=== PATIENT | female | born 1965 | race Caucasian/White ===

== ENCOUNTER → 2017-08-23 | Outpatient (CLI) | payer BC ==
[2017-08-23 10:19] LABS: Basophils # (A) 0.1 k/uL (0-0.2); Basophils % (A) 1 %; Eosinophils # (A) 0.5 k/uL (0-0.7); Eosinophils % (A) 7 %; HCT 46.9 % (34.0-46.0); HGB 15.4 gm/dL (11.4-16.0); Lymphocytes # (A) 2.2 k/uL (1.0-4.8); Lymphocytes % (A) 33 %; MCH 30.8 pg (25.0-35.0); MCHC 32.8 g/dL (31.0-37.0); MCV 93.9 fL (80.0-100.0); Mean Platelet Volume 7.2; Monocytes # (A) 0.4 k/uL (0-1.0); Monocytes % (A) 6 %; Neutrophils # (A) 3.4 k/uL (1.3-7.7); Neutrophils % (A) 51 %; Platelet Count 273 k/uL (150-450); RDW 12.6 % (11.5-15.5); WBC 6.6 k/uL (3.8-10.6)
[2017-08-23 10:20] LABS: ALT 51 U/L (9-52); AST 38 U/L (14-36); Albumin 4.5 g/dL (3.5-5.0); Alkaline Phosphatase 86 U/L (38-126); Anion Gap 10 mmol/L; Blood Urea Nitrogen 20 mg/dL (7-17); Calcium 9.5 mg/dL (8.4-10.2); Carbon Dioxide 30 mmol/L (22-30); Chloride 103 mmol/L (98-107); Cholesterol 192 mg/dL (<200); Glucose 108 mg/dL (74-99); HDL Cholesterol 58 mg/dL (40-60); LDL Cholesterol,Calculated 107 mg/dL (0-99); Potassium 4.4 mmol/L (3.5-5.1); Sodium 143 mmol/L (137-145); Total Bilirubin 0.9 mg/dL (0.2-1.3); Total Protein 7.2 g/dL (6.3-8.2); Triglycerides 135 mg/dL (<150)
== END | disposition home or self-care (01) ==
LOC: LABWHC1 09:46
PROVIDERS: ATTEND Family Medicine
DX: Z00.00 Encounter for general adult medical examination without abnormal findings (principal); R53.83 Other fatigue; D64.9 Anemia, unspecified; Z12.11 Encounter for screening for malignant neoplasm of colon
CPT/HCPCS: 36415; 80053; 80061; 82272; 82607; 84443; 85025

== ENCOUNTER 2017-10-02 11:47 | Observation (INO) | payer BC ==
[2017-10-02] MEDS ORDERED: SODIUM CHLORIDE 0.9% 500 ML IV STA (12:34)
--- NOTE | 2017-10-02 12:51 | XR ---
EXAMINATION TYPE: XR chest 2V DATE OF EXAM: 10/02/2017 COMPARISON: NONE TECHNIQUE: PA and lateral views submitted. HISTORY: Chest pain and shortness of breath FINDINGS: The lungs are clear and there is no pneumothorax, pleural effusion, or focal pneumonia. No overt fa ilure. Hypertrophic and degenerative change of the spine. IMPRESSION: 1. No acute process.
[2017-10-02 12:59] LABS: Basophils # (A) 0.1 k/uL (0-0.2); Basophils % (A) 1 %; Eosinophils # (A) 0.3 k/uL (0-0.7); Eosinophils % (A) 5 %; HCT 41.9 % (34.0-46.0); HGB 13.9 gm/dL (11.4-16.0); Lymphocytes # (A) 2.3 k/uL (1.0-4.8); Lymphocytes % (A) 34 %; MCH 30.5 pg (25.0-35.0); MCHC 33.1 g/dL (31.0-37.0); Mean Platelet Volume 7.4; Monocytes # (A) 0.4 k/uL (0-1.0); Monocytes % (A) 6 %; Neutrophils # (A) 3.5 k/uL (1.3-7.7); Neutrophils % (A) 52 %; Platelet Count 258 k/uL (150-450); RBC 4.55 m/uL (3.80-5.40); RDW 12.3 % (11.5-15.5); WBC 6.7 k/uL (3.8-10.6)
[2017-10-02 13:14] LABS: Partial Thromboplastin Time 24.9 sec (22.0-30.0)
[2017-10-02 13:19] LABS: ALT 55 U/L (9-52); AST 45 U/L (14-36); Albumin 4.5 g/dL (3.5-5.0); Alkaline Phosphatase 78 U/L (38-126); Anion Gap 8 mmol/L; Blood Urea Nitrogen 22 mg/dL (7-17); Calcium 9.4 mg/dL (8.4-10.2); Carbon Dioxide 27 mmol/L (22-30); Chloride 104 mmol/L (98-107); Glucose 88 mg/dL (74-99); Magnesium 2.1 mg/dL (1.6-2.3); Sodium 139 mmol/L (137-145); Total Bilirubin 0.8 mg/dL (0.2-1.3); Total Protein 7.3 g/dL (6.3-8.2)
[2017-10-02 13:32] LABS: Potassium 4.4 mmol/L (3.5-5.1)
[2017-10-02 13:33] LABS: Creatine Kinase 119 U/L (30-135)
[2017-10-02 13:46] LABS: Creatine Kinase MB 2.2 ng/mL (0.0-2.4); Troponin I <0.012 ng/mL (0.000-0.034)
[2017-10-02] MEDS ORDERED: NALOXONE 0.4 MG/ML 1 ML VIAL IV PRN (14:23)
[2017-10-02] MEDS ORDERED: ASPIRIN 81 MG PO STA (14:27)
--- NOTE | 2017-10-02 14:28 | ED ---
General Adult HPI - General Chief complaint: Chest Pain Stated complaint: Chest Pain Source: patient Mode of arrival: ambulatory Limitations: no limitations - History of Present Illness Initial comments: Dictation was produced using [employer] dictation software. please excuse any grammatical, word or spelling errors. Chief Complaint: 51-year-old female with a 60 past medical history presents with substernal chest pain. History of Present Illness: Patient is a 51-year-old feel presents with substernal chest pain. She states her symptoms started yesterday. She states that it happened at work. At first it was sharp. With radiation to the back. Today it's substernal and a dull pressure. Denies any radiation to her shoulders or neck. No associated diaphoresis, nausea vomiting. No constitutional symptoms. Patient denies any productive cough. The ROS documented in this emergency department record has been reviewed and confirmed by me. Those systems with pertinent positive or negative responses have been documented in the HPI. All other systems are other negative and/or noncontributory. - Related Data Home Medications Medication Instructions Recorded Confirmed Cyanocobalamin [Vitamin B-12] 2,500 mcg PO DAILY 10/02/17 10/02/17 Multivitamins, Thera [Multivitamin 1 tab PO DAILY 10/02/17 10/02/17 (formulary)] Triamcinolone 0.1% Cream [Kenalog 1 applic TOPICAL BID 10/02/17 10/02/17 0.1% Cream] Allergies Allergy/AdvReac Type Severity Reaction Status Date / Time No Known Allergies Allergy Verified 10/02/17 12:03 Review of Systems ROS Statement: Those systems with pertinent positive or pertinent negative responses have been documented in the HPI. ROS Other: All systems not noted in ROS Statement are negative. Past Medical History Past Medical History: No Reported History History of Any Multi-Drug Resistant Organisms: None Reported Additional Past Surgical History / Comment(s): utuerine ablation Past Psychological History: No Psychological Hx Reported Smoking Status: Never smoker Past Alcohol Use History: None Reported Past Drug Use History: None Reported General Exam - General Exam Comments Initial Comments: PHYSICAL EXAM: General Impression: Alert and oriented x3, not in acute distress HEENT: Normocephalic atraumatic, extra-ocular movements intact, pupils equal and reactive to light bilaterally, mucous membranes moist. Cardiovascular: Heart regular rate and rhythm, S1&S2 audible, no murmurs, rubs or gallops Chest: Lungs clear to auscultation bilaterally, no rhonchi, no wheeze, no rales Abdomen: Bowel sounds present, abdomen soft, non-tender, non-distended, no organomegaly Musculoskeletal: Pulses present and equal in all extremities, no peripheral edema Motor: Power 5/5 bilaterally, no focal deficits noted Neurological: CN II-XII grossly intact, no focal motor or sensory deficits noted Skin: Intact with no visualized rashes Psych: Normal affect and mood Limitations: no limitations Course Vital Signs 10/02/17 10/02/17 11:54 12:54 Temperature 97.8 F Pulse Rate 70 70 Respiratory 18 16 Rate Blood Pressure 125/78 111/66 O2 Sat by Pulse 100 97 Oximetry Medical Decision Making - Medical Decision Making ED course: 51-year-old female presents with substernal chest pressure. There is some concern that patient's symptoms represent acute coronary syndrome. As upon arrival are within acceptable limits. Patient given an aspirin. Laboratory evaluation obtained. CBC, coag panel, metabolic panel, cardiac enzymes are negative. Chest x-ray shows no acute processes. EKG does not show any signs to suggest ischemia or infarction. Discussed with patient that recommend she get a second troponin 2 distress at 5 patient. Patient be admitted to observation for second troponin EKG Interpretation: A 12 lead EKG was obtained. It was interpreted by myself and attending physician. There is a P wave before every QRS complex. Rate is 61. Rhythm is normal sinus rhythm, DE interval 162, QRS 80, QTc 436. QT is not prolonged. No ST segment depression or elevation. Overall, this EKG is unremarkable - Lab Data Result diagrams: 10/02/17 12:00 10/02/17 12:00 Lab Results 10/02/17 10/02/17 10/02/17 Range/Units 12:00 12:00 12:00 WBC 6.7 (3.8-10.6) k/uL RBC 4.55 (3.80-5.40) m/uL Hgb 13.9 (11.4-16.0) gm/dL Hct 41.9 (34.0-46.0) % MCV 92.0 (80.0-100.0) fL MCH 30.5 (25.0-35.0) pg MCHC 33.1 (31.0-37.0) g/dL RDW 12.3 (11.5-15.5) % Plt Count 258 (150-450) k/uL Neutrophils % 52 % Lymphocytes % 34 % Monocytes % 6 % Eosinophils % 5 % Basophils % 1 % Neutrophils # 3.5 (1.3-7.7) k/uL Lymphocytes # 2.3 (1.0-4.8) k/uL Monocytes # 0.4 (0-1.0) k/uL Eosinophils # 0.3 (0-0.7) k/uL Basophils # 0.1 (0-0.2) k/uL PT (9.0-12.0) sec INR (<1.2) APTT (22.0-30.0) sec Sodium 139 (137-145) mmol/L Potassium 4.4 (3.5-5.1) mmol/L Chloride 104 (98-107) mmol/L Carbon Dioxide 27 (22-30) mmol/L Anion Gap 8 mmol/L BUN 22 H (7-17) mg/dL Creatinine 0.63 (0.52-1.04) mg/dL Est GFR (CKD-EPI)AfAm >90 (>60 ml/min/1.73 sqM) Est GFR (CKD-EPI)NonAf >90 (>60 ml/min/1.73 sqM) Glucose 88 (74-99) mg/dL Calcium 9.4 (8.4-10.2) mg/dL Magnesium 2.1 (1.6-2.3) mg/dL Total Bilirubin 0.8 (0.2-1.3) mg/dL AST 45 H (14-36) U/L ALT 55 H (9-52) U/L Alkaline Phosphatase 78 (38-126) U/L Total Creatine Kinase 119 (30-135) U/L CK-MB (CK-2) 2.2 (0.0-2.4) ng/mL CK-MB (CK-2) Rel Index 1.8 Troponin I <0.012 (0.000-0.034) ng/mL Total Protein 7.3 (6.3-8.2) g/dL Albumin 4.5 (3.5-5.0) g/dL 08/02/18 Range/Units 12:00 WBC (3.8-10.6) k/uL RBC (3.80-5.40) m/uL Hgb (11.4-16.0) gm/dL Hct (34.0-46.0) % MCV (80.0-100.0) fL MCH (25.0-35.0) pg MCHC (31.0-37.0) g/dL RDW (11.5-15.5) % Plt Count (150-450) k/uL Neutrophils % % Lymphocytes % % Monocytes % % Eosinophils % % Basophils % % Neutrophils # (1.3-7.7) k/uL Lymphocytes # (1.0-4.8) k/uL Monocytes # (0-1.0) k/uL Eosinophils # (0-0.7) k/uL Basophils # (0-0.2) k/uL PT 10.0 (9.0-12.0) sec INR 1.0 (<1.2) APTT 24.9 (22.0-30.0) sec Sodium (137-145) mmol/L Potassium (3.5-5.1) mmol/L Chloride (98-107) mmol/L Carbon Dioxide (22-30) mmol/L Anion Gap mmol/L BUN (7-17) mg/dL Creatinine (0.52-1.04) mg/dL Est GFR (CKD-EPI)AfAm (>60 ml/min/1.73 sqM) Est GFR (CKD-EPI)NonAf (>60 ml/min/1.73 sqM) Glucose (74-99) mg/dL Calcium (8.4-10.2) mg/dL Magnesium (1.6-2.3) mg/dL Total Bilirubin (0.2-1.3) mg/dL AST (14-36) U/L ALT (9-52) U/L Alkaline Phosphatase (38-126) U/L Total Creatine Kinase (30-135) U/L CK-MB (CK-2) (0.0-2.4) ng/mL CK-MB (CK-2) Rel Index Troponin I (0.000-0.034) ng/mL Total Protein (6.3-8.2) g/dL Albumin (3.5-5.0) g/dL Disposition Clinical Impression: Chest pain Disposition: ADMITTED IP TO THIS HOSP Condition: Fair Referrals: Mahnaz Wallace MD [Primary Care Provider] - 1-2 days Time of Disposition: 14:28
[2017-10-02] MEDS ORDERED: ACETAMINOPHEN TAB 325 MG TAB PO PRN (15:38)
[2017-10-02] MEDS ORDERED: IBUPROFEN 400 MG TAB PO PRN (15:38)
--- NOTE | 2017-10-02 15:46 | P.HPIM ---
History of Present Illness H&P Date: 10/02/17 Chief Complaint: Chest pain Patient is a 51-year-old female with no significant past medical history who presented to the ER with complaints of chest pain. In the ER she underwent an extensive evaluation. Her initial troponin was negative. Initial EKG showed no significant ST-T wave changes. Initial chest x-ray was negative. There is concern for acute coronary syndrome and therefore she was placed in observation. Patient seen and examined at bedside. She states that last January she had a sudden onset chest pain that started retrosternal went straight through to her back in the last approximately 5-7 minutes and she thought she was given dye. Since that point in time she has had some intermittent chest pain. Last she again experienced the same pain that went straight through to her back. She then experienced it again on Friday. 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 She states the pain now is dull in the center of her chest with radiation to her back. When she experiences the severe pain she has lightheadedness, dizziness, she and shortness of breath. She denies nausea, vomiting, sweating, or numbness and tingling down her arms or up into her jaw. She has been feeling overall fatigued for the last week. She denies any recent cough, cold, fever, flu, diarrhea, or dysuria. She states that her sister has a lot of hot problems including pacemaker implantation and multiple procedures, however she is unsure if she's had stents or heart attack in the past. Her dad at age 77 she believes he had heart problems. She's never had a stress test before or heart cath. She has never seen a patient portal concierge in the past. She has not had much medical follow-up until one month ago when she went for a physical with Dr. Wallace. Cholesterol profile was checked 08/23/2017 and showed total cholesterol 192, LDL 107, HDL 58, and triglycerides 135. Review of Systems Pertinent positives and negatives as discussed in HPI, a complete review of systems was performed and all other systems are negative. Past Medical History Past Medical History: No Reported History History of Any Multi-Drug Resistant Organisms: None Reported Additional Past Surgical History / Comment(s): utuerine ablation Past Psychological History: No Psychological Hx Reported Smoking Status: Former smoker Past Alcohol Use History: None Reported Past Drug Use History: None Reported Additional Drug Use History / Comment(s): Works in a factory, lives with her , no assistive devices - Past Family History Father Family Medical History: Cancer, Coronary Artery Disease (CAD) Sister(s) Additional Family Medical History / Comment(s): heart disease Medications and Allergies Home Medications Medication Instructions Recorded Confirmed Type Cyanocobalamin [Vitamin B-12] 2,500 mcg PO DAILY 10/02/17 10/02/17 History Multivitamins, Thera [Multivitamin 1 tab PO DAILY 10/02/17 10/02/17 History (formulary)] Triamcinolone 0.1% Cream [Kenalog 1 applic TOPICAL BID 10/02/17 10/02/17 History 0.1% Cream] Allergies Allergy/AdvReac Type Severity Reaction Status Date / Time No Known Allergies Allergy Verified 10/02/17 12:03 Physical Exam Osteopathic Statement: *. No significant issues noted on an osteopathic structural exam other than those noted in the History and Physical/Consult. Vitals: Vital Signs Temp Pulse Resp BP Pulse Ox 10/02/17 14:51 60 16 138/81 95 10/02/17 12:54 70 16 111/66 97 10/02/17 11:54 97.8 F 70 18 125/78 100 Intake and Output 10/02/17 10/02/17 10/02/17 06:59 14:59 22:59 Other: Weight 61.235 kg General: non toxic, no distress, appears at stated age, normal weight Derm: no unusual rashes/lesions no unusual ecchymoses, warm, dry Head: atraumatic, normocephalic, symmetric Eyes: EOMI, no lid lag, anicteric sclera, pupils equal round reactive to light ENT: Nose and ears atraumatic, no thrush, no pharyngeal erythema Neck: No thyromegaly, no cervical lymphadenopathy, trachea midline, supple Mouth: no lip lesion, mucus membranes moist Cardiovascular: S1S2 reg with fixed split S2, positive posterior tibial pulse bilateral, no edema, capillary refill less than 2 seconds Lungs: CTA bilateral, no rhonchi, no rales , no accessory muscle use Abdominal: soft, nontender to palpation, no guarding, no appreciable organomegaly, normal bowel sounds Ext: no gross muscle atrophy, muscle strength 5 out of 5 in all 4 extremities grossly, no contractures, Neuro: CN II-XI grossly intact, light touch intact all 4 extremities, finger to nose within normal limits, Psych: Alert, oriented, appropriate affect Results CBC & Chem 7: 10/02/17 12:00 10/02/17 12:00 Labs: Abnormal Lab Results - Last 24 Hours (Table) 10/02/17 Range/Units 12:00 BUN 22 H (7-17) mg/dL AST 45 H (14-36) U/L ALT 55 H (9-52) U/L Comments: EKG is reviewed by myself reveals normal sinus rhythm at a rate of 61, NM 162, QRS 88, QTC 436, no significant ST-T wave changes. Chest x-ray: report reviewed Thrombosis Risk Factor Assmnt - DVT/VTE Prophylaxis DVT/VTE Prophylaxis: Low risk, early ambulation encouraged - Choose All That Apply Each Factor Represents 1 point: Age 41-60 years Thrombosis Risk Factor Assessment Total Risk Factor Score: 1 Thrombosis Risk Factor Assessment Level: Low Risk Assessment and Plan Assessment: Chest pain -Sometimes typical, others not -Serial troponins -Aspirin -Consult cardiology and nothing by mouth after midnight for probable stress echo in a.m. -Lipid profile completed 08/23/2017 with an LDL of 107 - check gallbladder US - TSH 1.450 The patient is placed in observation with an anticipated less than 2 per night stay for evaluation of chest pain. Surrogate decision-maker: CODE STATUS:Full DVT prophylaxis: Ambulation Discussed with: Patient, ED physician Anticipated discharge date: 10/[address]: home A total of 35 minutes was spent on the care of this complex patient more than 50 % of the time was spent in counseling and care coordination.
[2017-10-02] MEDS ORDERED: NITROGLYCERIN SL TABS 0.4 MG TAB SUBLINGUAL PRN (15:50)
[2017-10-02 16:08] VITALS: BMI 24.5
[2017-10-02] MEDS ORDERED: MELATONIN 3 MG TABLET PO PRN (21:00)
[2017-10-03 08:49] VITALS: RESP 16
[2017-10-03] MEDS ORDERED: ASPIRIN 81 MG PO SCH (09:00)
--- NOTE | 2017-10-03 10:10 | US ---
EXAMINATION TYPE: US gallbladder DATE OF EXAM: 10/03/2017 COMPARISON: NONE CLINICAL HISTORY: pain. Epigastric pain radiating to the back. NPO. EXAM MEASUREMENTS: Liver Length: 18.7 cm Gallbladder Wall: 0.1 cm CBD: 0.6 cm CHD: 0.4 cm Right Kidney: 10.0 x 4.4 x 3.0 cm Pancreas: wnl Liver: Appears enlarged in size and slightly echogenic Gallbladder: wnl Evidence for sonographic Campos's sign: neg CBD: wnl CHD: wnl Right Kidney: Lateral cystic appearing lesion seen in mid/lower pole = 2.1 x 1.8 x 1.8 cm IMPRESSION: 1. Hepatomegaly with heterogeneous pattern to the liver suggestive of hepatitis or hepatocellular dis ease. 2. Right renal cystic lesion does not meet the criteria of a simple cyst but this may be technical an d could be correlated with CT scan.
--- NOTE | 2017-10-03 10:29 | ECHOF ---
Referral Reason:cp MEASUREMENTS -------- HEIGHT: 162.6 cm WEIGHT: 64.9 kg BP: 111/70 RVIDd: 2.1 cm (< 3.3) IVSd: 1.1 cm (0.6 - 1.1) LVIDd: 3.8 cm (3.9 - 5.3) LVPWd: 1.1 cm (0.6 - 1.1) IVSs: 1.3 cm LVIDs: 2.7 cm LVPWs: 1.4 cm LAESV Index (A-L): 19.20 ml/m Ao Diam: 3.3 cm (2.0 - 3.7) AV Cusp: 2.0 cm (1.5 - 2.6) LA Diam: 3.2 cm (2.7 - 3.8) EPSS: 0.4 cm MV E Huber: 0.35 m/s MV DecT: 327 ms MV A Huber: 0.38 m/s MV E/A Ratio: 0.91 RAP: 5.00 mmHg RVSP: 22.77 mmHg MV EF SLOPE: 91.90 mm/s (70 - 150) MV EXCURSION: 1.59 cm (> 18.000) FINDINGS -------- Sinus rhythm. This was a technically good study. The left ventricular size is normal. There is borderline concentric left ventricular hypertrophy. Overall left ventricular systolic function is normal with, an EF between 55 - 60 %. The right ventricle is normal in size and function. Normal LA size by volume 22+/-6 ml/m2. The right atrium is normal in size. Aortic valve is trileaflet and is mildly thickened. There is no evidence of aortic regurgitation. There is no evidence of aortic stenosis. The mitral valve leaflets are mildly thickened. There is trace to mild mitral regurgitation. Trace tricuspid regurgitation present. Right ventricular systolic pressure is normal at < 35 mmHg. There is no evidence of pulmonary hypertension. The pulmonic valve was not well visualized. The aortic root is borderline dilated, up to 3.6 cm. Normal inferior vena cava with normal inspiratory collapse consistent with estimated right atrial pre ssure of 5 mmHg. There is no pericardial effusion. CONCLUSIONS -------- 1. Sinus rhythm. 2. This was a technically good study. 3. The left ventricular size is normal. 4. There is borderline concentric left ventricular hypertrophy. 5. Overall left ventricular systolic function is normal with, an EF between 55 - 60 %. 6. Normal LA size by volume 22+/-6 ml/m2. 7. Aortic valve is trileaflet and is mildly thickened. 8. The mitral valve leaflets are mildly thickened. 9. There is trace to mild mitral regurgitation. 10. Trace tricuspid regurgitation present. 11. Right ventricular systolic pressure is normal at < 35 mmHg. 12. There is no evidence of pulmonary hypertension. 13. The pulmonic valve was not well visualized. 14. The aortic root is borderline dilated, up to 3.6 cm. 15. There is no pericardial effusion. NIPPING MACHINE OPERATOR: Mik Lisa RDCS
[2017-10-03] MEDS ORDERED: ALPRAZolam 0.5 MG TAB PO PRN (10:42)
[2017-10-03] MEDS ORDERED: ASPIRIN 325 MG TAB PO STA (10:42)
[2017-10-03] MEDS ORDERED: ATORVASTATIN 80 MG TAB PO STA (10:42)
[2017-10-03] MEDS ORDERED: ALPRAZolam 0.25 MG TAB PO PRN (10:42)
[2017-10-03] MEDS ORDERED: SODIUM CHLORIDE 0.9% 1,000 ML in EMPTY BAG 1 BAG IV ONE (10:42)
--- NOTE | 2017-10-03 10:56 | ECHOS ---
STRESS ECHOCARDIOGRAM INDICATIONS: Chest pain. MEDICATIONS: None BASELINE HEART RATE: 82 BASELINE BLOOD PRESSURE: 92/68 MAXIMUM HEART RATE: 161 MAXIMUM BLOOD PRESSURE: 158/79 85% MPHR: 142 100% MPHR: 167 METS: 8.5 MAXIMUM STAGE REACHED: II TOTAL EXERCISE TIME: 7:01 INDICATION: Chest pain. CLINICAL INFORMATION: Baseline EKG shows sinus rhythm, normal axis, normal intervals. Patient exercised on Drew protocol for a total of 7 minutes achieving 8 METS, 96% of predicted maximum, heart rate without chest pain. At peak exercise, there was [address]-segment depression noted. Baseline echo shows normal left ventricular size, wall motion, systolic function. Post exercise, there is normal hyperdynamic response of all segments of myocardium noted. CONCLUSION: 1. Above-average exercise tolerance. 2. Abnormal stress test by EKG criteria. 3. Negative stress echo. DEVAUGHN / TATIANA: [id number] /
--- NOTE | 2017-10-03 11:03 | P.CRDCN ---
History of Present Illness History of present illness: This is cardiac pleasant 51-year-old female with no significant past medical history. We have been asked to see her in consultation for chest pain. She states she was working yesterday and developed a pain in the mid-sternal region that radiated through to her back. It initially felt very sharp in nature and then the sharpness subsided and a dull achy sensation persisted for approximately 5-7 minutes with associated nausea and mild light headed feeling. The pain did not radiate to her arm, neck or jaw. She had no associated shortness of breath, vomiting, diaphoresis or palpitations. The pain went away on its own with no specific alleviating factors. She states she felt a similar episode in January of last year that also subsided on its own. At that time she had an EKG that was normal and no further cardiac work-up. She has experienced a similar episode 2 or 3 other times in the last few weeks as well. At the time of my exam she is chest pain free. She also states she is currently going through menopause and has been increasingly fatigued and diaphoretic at times. Those symptoms are not evident when she has chest pain. EKG reveals sinus mechanism with no acute ST or T-wave abnormalities noted. Chest xray negative for an acute cardiopulmonary process. Laboratory data reviewed, hgb 13.9, plt 258, sodium 139, potassium 4.4, magnesium 2.1, creatinine 0.63, AST 45, ALT 55, cardiac enzymes negative x2. She takes no daily cardiac medications. She has never had a stress test or heart catheterization in the past. Review of Systems At the time of my exam: CONSTITUTIONAL: Denies fever. Denies chills. EYES: Denies blurred vision. Denies vision changes. Denies eye pain. EARS, NOSE, MOUTH & THROAT: Denies headache. Denies sore throat. Denies ear pain. CARDIOVASCULAR: Denies chest pain. Denies shortness of breath. Denies orthopnea. Denies PND. Denies palpitations. RESPIRATORY: Denies cough. GASTROINTESTINAL: Denies abdominal pain. Denies diarrhea. Denies constipation. Denies nausea. Denies vomiting. MUSCULOSKELETAL: Denies myalgias. INTEGUMENTARY: Denies pruitis. Denies rash. NEUROLOGIC: Denies numbness. Denies tingling. Denies weakness. PSYCHIATRIC: Denies anxiety. Denies depression. ENDOCRINE: Denies fatigue. Denies weight change. Denies polydipsia. Denies polyurina. GENITOURINARY: Denies burning, hematuria or urgency with micturation. HEMATOLOGIC: Denies history of anemia. Denies bleeding. Past Medical History Past Medical History: No Reported History History of Any Multi-Drug Resistant Organisms: None Reported Past Surgical History: Section Additional Past Surgical History / Comment(s): utuerine ablation, x3 Past Anesthesia/Blood Transfusion Reactions: No Reported Reaction Past Psychological History: No Psychological Hx Reported Smoking Status: Former smoker Past Alcohol Use History: None Reported Past Drug Use History: None Reported Additional Drug Use History / Comment(s): Works in a factory, lives with her , no assistive devices - Past Family History Father Family Medical History: Cancer, Coronary Artery Disease (CAD) Sister(s) Additional Family Medical History / Comment(s): heart disease Medications and Allergies Home Medications Medication Instructions Recorded Confirmed Type Cyanocobalamin [Vitamin B-12] 2,500 mcg PO DAILY 10/02/17 10/02/17 History Multivitamins, Thera [Multivitamin 1 tab PO DAILY 10/02/17 10/02/17 History (formulary)] Triamcinolone 0.1% Cream [Kenalog 1 applic TOPICAL BID 10/02/17 10/02/17 History 0.1% Cream] Allergies Allergy/AdvReac Type Severity Reaction Status Date / Time No Known Allergies Allergy Verified 10/02/17 12:03 Physical Exam Vitals: Vital Signs Temp Pulse Pulse Resp BP BP BP 10/03/17 08:00 97.6 F 71 16 106/68 10/03/17 03:19 18 10/03/17 03:18 97.8 F 61 18 111/70 10/03/17 00:00 98.2 F 63 18 112/71 10/02/17 20:00 18 10/02/17 19:40 97.6 F 71 18 104/69 10/02/17 15:44 60 18 10/02/17 15:29 97.4 F L 60 18 121/70 10/02/17 14:51 60 16 138/81 10/02/17 12:54 70 16 111/66 10/02/17 11:54 97.8 F 70 18 125/78 Pulse Ox 10/03/17 08:00 93 L 10/03/17 03:19 10/03/17 03:18 97 10/03/17 00:00 95 10/02/17 20:00 10/02/17 19:40 96 10/02/17 15:44 10/02/17 15:29 97 10/02/17 14:51 95 10/02/17 12:54 97 10/02/17 11:54 100 Intake and Output 10/02/17 10/03/17 10/03/17 22:59 06:59 14:59 Intake Total 420 Balance 420 Intake: Oral 420 Other: Voiding Method Toilet Toilet # Voids 2 Weight 65 kg Blood pressure 106/68 heart rate 71 afebrile maintaining oxygen saturation on room air GENERAL: This is a 51-year-old female in no apparent distress at the time of my examination. HEENT: Head is atraumatic, normocephalic. Pupils are equal, round. Sclerae anicteric. Conjunctivae are clear. Mucous membranes of the mouth are moist. Neck is supple. There is no jugular venous distention. No carotid bruit is heard. LUNGS: Clear to auscultation no wheezes, rales or rhonchi. No chest wall tenderness is noted on palpation or with deep breathing. HEART: Regular rate and rhythm without murmurs, rubs or gallops. S1 and S2 heard. ABDOMEN: Soft, nontender. Bowel sounds are heard. No organomegaly noted. EXTREMITIES: No evidence of peripheral edema and no calf tenderness noted. VASCULAR: Radial and dorsalis pedis pulses palpated, no evidence of clubbing. NEUROLOGIC: Patient is awake, alert and oriented x3. Results 10/02/17 12:00 10/02/17 12:00 Cardiac Enzymes 10/02/17 10/02/17 10/02/17 Range/Units 12:00 12:00 15:39 AST 45 H (14-36) U/L CK-MB (CK-2) 2.2 (0.0-2.4) ng/mL Troponin I <0.012 <0.012 (0.000-0.034) ng/mL Coagulation 10/02/17 Range/Units 12:00 PT 10.0 (9.0-12.0) sec APTT 24.9 (22.0-30.0) sec CBC 10/02/17 Range/Units 12:00 WBC 6.7 (3.8-10.6) k/uL RBC 4.55 (3.80-5.40) m/uL Hgb 13.9 (11.4-16.0) gm/dL Hct 41.9 (34.0-46.0) % Plt Count 258 (150-450) k/uL Comprehensive Metabolic Panel 10/02/17 Range/Units 12:00 Sodium 139 (137-145) mmol/L Potassium 4.4 (3.5-5.1) mmol/L Chloride 104 (98-107) mmol/L Carbon Dioxide 27 (22-30) mmol/L BUN 22 H (7-17) mg/dL Creatinine 0.63 (0.52-1.04) mg/dL Glucose 88 (74-99) mg/dL Calcium 9.4 (8.4-10.2) mg/dL AST 45 H (14-36) U/L ALT 55 H (9-52) U/L Alkaline Phosphatase 78 (38-126) U/L Total Protein 7.3 (6.3-8.2) g/dL Albumin 4.5 (3.5-5.0) g/dL Current Medications Generic Name Dose Route Start Last Admin Trade Name Freq PRN Reason Stop Dose Admin Acetaminophen 650 mg 10/02/17 15:38 Tylenol Tab PO Q6HR PRN Mild Pain or Fever > 100.5 Aspirin 81 mg 10/03/17 09:00 Aspirin PO DAILY SIMRAN Ibuprofen 400 mg 10/02/17 15:38 Motrin PO Q6HR PRN Mild Pain or Fever > 100.5 Melatonin 3 mg 10/02/17 21:00 Melatonin PO HS PRN Insomnia Naloxone HCl 0.2 mg 10/02/17 14:23 Narcan IV Q2M PRN Opioid Reversal Nitroglycerin 0.4 mg 10/02/17 15:50 10/02/17 15:56 Nitrostat SUBLINGUAL 0.4 mg Q5M PRN Administration Chest Pain Intake and Output 10/02/17 10/03/17 10/03/17 22:59 06:59 14:59 Intake Total 420 Balance 420 Intake: Oral 420 Other: Voiding Method Toilet Toilet # Voids 2 Weight 65 kg 10/02/17 12:00 10/02/17 12:00 Assessment and Plan Assessment: ASSESSMENT Chest pain, atypical. An acute coronary event has been ruled out with no EKG evidence of ischemia and negative cardiac enzymes. Elevated liver enzymes, mildly PLAN An acute coronary event has been ruled out with no EKG evidence of ischemia and negative cardiac enzymes. Check d-dimer and lipid panel. Obtain 2D echocardiogram and doppler study to assess cardiac structure and function. Perform exercise stress echocardiogram to assess for stress induced ischemic changes. Thank you kindly for this consultation. The above impression and plan of care have been discussed and directed by the signing physician. Shae Lao, nurse practitioner, acting as scribe for signing physician.
[2017-10-03 11:34] VITALS: BP 117/77; PULSE 64; TEMP 98.1
--- NOTE | 2017-10-03 11:35 | P.DS ---
Providers Date of admission: 10/02/17 14:23 Expected date of discharge: 10/03/17 Attending physician: Zenaida Conway DO Consults: 10/02/17 15:40 Consult Physician Routine Consulting Provider: Andrea Boyle Consult Reason/Comments: chest pain, stress test Do you want consulting provider notified?: Yes Primary care physician: Mahnaz Wallace MD Hospital Course: Discharge diagnosis: non cardiac chest pain Hepatomegally Hospital Course: Patient is a 51-year-old female with no significant past medical history who presented to the ER with complaints of chest pain. In the ER she underwent an extensive evaluation. Her initial troponin was negative. Initial EKG showed no significant ST-T wave changes. Initial chest x-ray was negative. There is concern for acute coronary syndrome and therefore she was placed in observation. Repeat troponin was negative. She underwent an echocardiogram which showed a preserved ejection fraction of 50-55%. She underwent a stress test on the morning of 10/03 which had a negative stress echo. She was cleared by cardiology for discharge. She also had undergone an liver ultrasound to assess the gallbladder due to her chest pain. This did come back showing hepatomegaly but no signs of gallbladder disease. An acute hepatitis panel was ordered and is pending at the time of discharge. She had recently had her cholesterol levels drawn which were within normal limits and she was not started on a statin. She'll follow up with Dr. Wallace in the next 3-5 days to receive the results of her hepatitis panel and further workup of her chest pain. She'll follow up with Dr. Harris in 2 weeks. Patient seen and examined at bedside. No chest pain, shortness breath, nausea, or vomiting. Still suffering from hot flashes. Son has a history of hepatitis C Vital signs reviewed and stable. General: non toxic, no distress, appears at stated age Derm: warm, dry Head: atraumatic, normocephalic, symmetric Eyes: EOMI, no lid lag, anicteric sclera Mouth: no lip lesion, mucus membranes moist Cardiovascular: S1S2 reg, no murmur, positive posterior tibial pulse bilateral, Lungs: CTA bilateral, no rhonchi, no rales , no accessory muscle use Abdominal: soft, nontender to palpation, no guarding, no appreciable organomegaly Ext: no gross muscle atrophy, no edema, no contractures Neuro: CN II-XI grossly intact, no focal neuro deficits Psych: Alert, oriented, appropriate affect A total of 25 minutes of time were spent preparing this complex discharge summary . Pertinent Studies: Stress echo-echo negative, stress test with some baseline abnormalities Liver ultrasound-hepatomegaly with heterogeneous pattern suggestive of hepatitis or hepatocellular disease Patient Condition at Discharge: Fair Plan - Discharge Summary Discharge Rx Participant: No New Discharge Prescriptions: No Action Cyanocobalamin [Vitamin B-12] 2,500 mcg PO DAILY Multivitamins, Thera [Multivitamin (formulary)] 1 tab PO DAILY Triamcinolone 0.1% Cream [Kenalog 0.1% Cream] 1 applic TOPICAL BID Discharge Medication List Cyanocobalamin [Vitamin B-12] 2,500 mcg PO DAILY 10/02/17 [History] Multivitamins, Thera [Multivitamin (formulary)] 1 tab PO DAILY 10/02/17 [History ] Triamcinolone 0.1% Cream [Kenalog 0.1% Cream] 1 applic TOPICAL BID 10/02/17 [ History] Follow up Appointment(s)/Referral(s): Mahnaz Wallace MD [Primary Care Provider] - 1-2 days Tyler Harris MD [STAFF PHYSICIAN] - 2 Weeks Activity/Diet/Wound Care/Special Instructions: heart healthy diet Activity as tolerated Please ensure follow-up with Dr. Wallace to review your hepatitis labs. Menopausal symptoms: Black-[email or web address] [email or web address] Discharge Disposition: HOME SELF-CARE
[2017-10-03 11:59] LABS: Cholesterol 182 mg/dL (<200); HDL Cholesterol 51 mg/dL (40-60); LDL Cholesterol,Calculated 110 mg/dL (0-99); Triglycerides 105 mg/dL (<150)
[2017-10-03 16:49] LABS: Hepatitis A Antibody IgM Non-Reactive (Non-Reactive); Hepatitis B Core IgM Non-Reactive (Non-Reactive)
== END 2017-10-03 12:49 | disposition home or self-care (01) ==
LOC: EC 11:47 → 3OBS 14:23
PROVIDERS: ADMIT Internal Medicine; ATTEND Internal Medicine
DX: R07.89 Other chest pain (principal); R16.0 Hepatomegaly, not elsewhere classified; R42 Dizziness and giddiness; R06.02 Shortness of breath; R53.83 Other fatigue; R74.8 Abnormal levels of other serum enzymes; N95.1 Menopausal and female climacteric states; Z87.891 Personal history of nicotine dependence; Z82.49 Family history of ischemic heart disease and other diseases of the circulatory system; Z80.9 Family history of malignant neoplasm, unspecified; Z83.1 Family history of other infectious and parasitic diseases
CPT/HCPCS: 99285 ×2; 96360 ×2; 96361 ×5; 36415; 93005; 93306; 93351; 85379; 80061; 80053; 80074; 82550; 82553; 83735; 84484; 85025; 85610; 85730; 71046; 76705; G0378 ×2

== ENCOUNTER → 2023-07-17 | Outpatient (CLI) | payer BC ==
--- NOTE | 2023-07-20 20:35 | MM ---
Reason for Exam: Screening (asymptomatic). Last mammogram was performed 10 year(s) and 10 month(s) ago. Patient History: Menarche at age 11. First Full-Term at age 17. Postmenopausal. 01/27/2001, Benign Cyst Aspiration on the left side. Daughter had breast cancer, bilateral, age 36. Mother had ovarian cancer, age 30. Sister had ovarian cancer, age 40. Risk Values: Melia 5 year model risk: 2.6%. NCI Lifetime model risk: 13.5%. Prior Study Comparison: 04/23/2010 Bilateral Screening Mammogram, [facility]. 09/11/2011 Bilateral Diagnostic Mammogram, [facility]. 09/28/2012 Bilateral Screening Mammogram, [facility]. Tissue Density: The breasts are heterogeneously dense, which may obscure small masses. Findings: Analyzed By CAD. Possible obscured distortion and focal asymmetry 12:00 left breast anterior to middle depth. This may represent superimposed position shadow but further evaluation is recommended. Otherwise, no significant change. Overall Assessment: Incomplete: need additional imaging evaluation, BI-RAD 0 Management: Special View Mammogram of the left breast. Diagnostic Breast Ultrasound of the left breast. . [facility] will attempt to contact patient to return for supplemental views and ultrasound if indicated. Electronically signed and approved by: Juanito Girard M.D. Radiologist
== END | disposition home or self-care (01) ==
LOC: RADMAMWWP 16:22
PROVIDERS: ATTEND Family Medicine
DX: Z12.31 Encounter for screening mammogram for malignant neoplasm of breast (principal); Z78.0 Asymptomatic menopausal state; Z80.3 Family history of malignant neoplasm of breast
CPT/HCPCS: 77063; 77067

== ENCOUNTER → 2023-07-31 | Outpatient (CLI) | payer BC ==
--- NOTE | 2023-07-31 08:02 | MM ---
Reason for Exam: Additional evaluation requested from abnormal screening. Last screening mammogram was performed less than 1 month ago. Patient History: Menarche at age 11. First Full-Term at age 17. Postmenopausal. 01/27/2001, Benign Cyst Aspiration on the left side. Daughter had breast cancer, bilateral, age 36. Mother had ovarian cancer, age 30. Sister had ovarian cancer, age 40. Risk Values: Melia 5 year model risk: 2.6%. NCI Lifetime model risk: 13.5%. Prior Study Comparison: 04/23/2010 Bilateral Screening Mammogram, [facility]. 09/11/2011 Bilateral Diagnostic Mammogram, [facility]. 09/28/2012 Bilateral Screening Mammogram, [facility]. 07/17/2023 Bilateral MG 3D screening mammo w/cad, [facility]. Tissue Density: Left: The breasts are heterogeneously dense, which may obscure small masses. Findings: Analyzed By CAD. Complex breast tissue is redemonstrated. The questioned areas of asymmetric density variably improved on the additional views. A 1.1 cm asymmetric density central inner aspect on the CC view to posterior depth becomes more defined. Patient's prior exams are made available for review and we note extensive fluctuating nodularity on the patient's prior studies. Further ultrasound evaluation recommended. Overall Assessment: Incomplete: need additional imaging evaluation, BI-RAD 0 Management: Diagnostic Breast Ultrasound of the left breast. Superior half. Electronically signed and approved by: Juanito Girard M.D. Radiologist
--- NOTE | 2023-07-31 08:44 | USB ---
Reason for Exam: Additional evaluation requested from abnormal screening. Patient History: Menarche at age 11. First Full-Term at age 17. Postmenopausal. 01/27/2001, Benign Cyst Aspiration on the left side. Daughter had breast cancer, bilateral, age 36. Mother had ovarian cancer, age 30. Sister had ovarian cancer, age 40. Risk Values: Melia 5 year model risk: 2.6%. NCI Lifetime model risk: 13.5%. Technique: Method: Targeted. Prior Study Comparison: 09/11/2011 Bilateral Diagnostic Mammogram, [facility]. 09/28/2012 Bilateral Screening Mammogram, [facility]. 07/17/2023 Bilateral MG 3D screening mammo w/cad, [facility]. Findings: The upper outer quadrant of the left breast, the upper inner quadrant of the left breast, the axilla of the left breast and the retroareolar of the left breast were scanned. Ultrasound superior half of the left breast 9:00 to 3:00 including scanning of the subareolar region and axilla. * At the 11:00 position, 5 cm from the nipple, there is a bilobed debris-filled cyst measuring 1.1 x 0.9 x 0.5 cm, suspect a mammographic correlate. * Additional scattered smaller debris-filled cysts are present measuring up to 5 mm. * No suspicious solid lesion identified. No axillary lymphadenopathy. Overall Assessment: Probably benign, BI-RAD 3 Management: Diagnostic Mammogram of the left breast in 6 months. A clinical breast exam by your physician is recommended on an annual basis and results should be correlated with mammographic findings. This exam should not preclude additional follow-up of suspicious palpable abnormalities. Results were given to the patient verbally at the time of exam. Electronically signed and approved by: Juanito Girard M.D. Radiologist
== END | disposition home or self-care (01) ==
LOC: RADMAMWWP 07:01
PROVIDERS: ATTEND Family Medicine
DX: N60.12 Diffuse cystic mastopathy of left breast (principal); R92.332 Mammographic heterogeneous density, left breast; Z80.3 Family history of malignant neoplasm of breast; Z78.0 Asymptomatic menopausal state
CPT/HCPCS: 77061; 77065